=== PATIENT | male | born 1955 | race Caucasian/White ===

== ENCOUNTER 2016-09-30 20:21 | Emergency (ER) | payer OTHER ==
[~2016-09-30 20:21] MED LIST: ASPIR 8181 MG PO; LEVAQUIN750 MG PO; LIPITOR20 MG PO; METHOCARBAMOL750 MG PO; METOPROLOL 1212.5 MG PO; NORCO 5-325 TA1 EACH PO; XANAX2 MG PO
== END 2016-09-30 23:55 | disposition home or self-care (01) ==
LOC: FER 20:21
DX: S51.812A Laceration without foreign body of left forearm, initial encounter (principal); W31.89XA Contact with other specified machinery, initial encounter; Y92.009 Unspecified place in unspecified non-institutional (private) residence as the place of occurrence of the external cause